=== PATIENT | male | born 1990 | race African-American/Black ===

== ENCOUNTER 2016-06-22 15:34 | Emergency (ER) | payer OTHER ==
[~2016-06-22] VITALS: Ht 177.8 cm; Wt 115.0 kg
[2016-06-22 15:39] VITALS: TEMP 37.2; Ht 177.8 cm; Wt 115.0 kg
[2016-06-22] MEDS ORDERED: XYLOCAINE 1%/SOD BICARB 20 ML VIAL INFIL ONE (16:00)
[2016-06-22] MEDS ORDERED: NAPR-1169 PO (16:15)
[2016-06-22] MEDS ORDERED: CYCL5TAB PO (16:16)
--- NOTE | 2016-06-22 16:48 | DIAGNOSTIC IMAGING REPORT ---
RIGHT HAND 3 VIEWS CLINICAL HISTORY: Right hand injury. FINDINGS: 3 views of the right hand are obtained. No prior studies are available for comparison at the time of dictation. The skeletal structures are well mineralized. No acute fracture is seen. 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 The overlying soft tissues are within normal limits. No radiodense foreign body is seen. IMPRESSION: 1. No acute bony abnormality is seen in the right hand. 2. 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 3. No radiodense foreign body is identified. Electronically signed by: Mandeep Stanford M.D. 06/22/2016 4:46 PM Dictated Date/Time: 06/22/2016 4:45 PM
--- NOTE | 2016-06-22 17:13 | EMERGENCY ROOM VISIT NOTE ---
ED Visit Note First contact with patient: 15:54 Chief Complaint: RIGHT Hand Laceration History of Present Illness: This patient is a 26-year-old male who presents to the Emergency Department this afternoon for evaluation of their RIGHT thumb laceration. Patient sustained the laceration while slipping on the ice and maxillary following with his hand through a no. They report a moderate amount of bleeding initially. They deny any numbness or tingling into the distal extremity. They report no decreased range of motion of the affected digit. They have tried nothing for the pain. Patient rates his current discomfort as a 0/10. Patient's Tetanus status is currently up-to-date. Medications: No current medications. Allergies: No known allergies. PMH: No pertinent past medical history. SHx: Patient is a 26-year-old male who lives locally. ROS: All pertinent positive and negative review of systems are appropriately documented in the History of Present Illness. Physical Exam: VITAL SIGNS - Vital signs and nursing notes were reviewed. GENERAL - 26-year-old male appearing his stated age who is in no acute distress. Communicates well with provider and answers questions appropriately. SKIN - There is a 1.0 cm long laceration noted to the MCP of the RIGHT thumb. The edges gape apart with traction. No foreign bodies appreciated. Upon further examination there are no deep structures including vessel, tendon, or bony structures appreciated. There is mild active bleeding noted. MUSCULOSKELETAL - Laceration as described above. +5/5 strength appreciated of the affected digit. Full range of motion of the affected digit. NEUROLOGIC - Spinothalamic tract was found to be intact with ability to discriminate sharp versus dull sensation. No sensory defects of the dorsal column were appreciated utilizing light touch for evaluation. VASCULAR - Capillary refill was brisk. IMAGING: RIGHT HAND 3 VIEWS CLINICAL HISTORY: Right hand injury. FINDINGS: 3 views of the right hand are obtained. No prior studies are available for comparison at the time of dictation. The skeletal structures are well mineralized. No acute fracture is seen. 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 The overlying soft tissues are within normal limits. No radiodense foreign body is seen. IMPRESSION: 1. No acute bony abnormality is seen in the right hand. 2. 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 3. No radiodense foreign body is identified. ED Course: Patient was seen and evaluated by myself. X-ray of the affected hand was obtained. Imaging results as above. Costs and benefits of performing primary wound closure versus no repair were discussed with the patient who verbalizes understanding. Verbal consent was obtained prior to performing the procedure. 1.0 cc of 1% buffered lidocaine was used to anesthetize the RIGHT hand laceration. The wound was cleansed and prepped in the typical sterile fashion utilizing normal saline and Betadine. The wound was sterilely draped. Once proper anesthetization was established, the wound was further examined and demonstrated a full-thickness laceration without extension to the deep structures.. The wound was copiously irrigated with normal saline and Betadine. The wound was closed using 3 simple, 5-0 nylon sutures with the wound edges being well approximated. Patient tolerated the procedure well. No complications were met. The wound was cleansed and dressed with a Bacitracin dressing. Patient educated on worrisome symptoms for return visit to the Emergency Department. Patient discharged to home in good condition. Impression: RIGHT Hand Laceration Discharge Instructions: You have received 3 sutures on your RIGHT Thumb. These sutures are NOT dissolvable and WILL need to be removed by a health care provider in 7-10 days. You can return to the Emergency Department or contact your Primary Care Provider to have the sutures removed. Proper wound care is essential for adequate wound healing and infection prevention. You can shower and clean the wound with soap and water. Do not scour over the wound, pat dry with a towel. Do not submerse the wound (i.e. bathe or dish wash) until the sutures have been removed. You can use an antibiotic ointment with a dressing over the wound for the next 3-4 days. After this time you may leave the wound dry and open to the air. If crust develops over the wound you can use a Q-tip to apply a 1:1 peroxide:water solution to clean the wound. Look for signs of infection of the wound including: increased pain, swelling, foul discharge, streaking, or increased temperature. If any of these are noticed you should return to the Emergency Department for further assessment and treatment. As with any laceration you may have received nerve damage to the surrounding tissues. This damage may or may not be permanent. You should keep the area covered with sunscreen for the first 6 months to 1 year when at risk for exposure to help minimize scarring. You can also use scar reducing creams or Vitamin E oil to help minimize scarring. For pain control, you can use the following jnee-iuh-eksliwa medicines (if >12 yo): - Regular strength (325mg/tab) Tylenol (acetaminophen) 2 tabs every 4-6 hours as needed. Do not exceed 12 tablets in a 24 hour period. Avoid taking more than 4 grams (4000 mg) of Tylenol per day. This includes any other sources of acetaminophen you may take on a regular basis. - Regular strength (200 mg/tab) Advil (ibuprofen) 1-2 tabs every 4-6 hours as needed. Do not exceed a dose of 3200 mg per day. Return to the emergency department if your symptoms worsen despite treatment course outlined above. Current/Historical Medications Scheduled PRN Cyclobenzaprine Hcl (Flexeril), 5 MG PO DAILY PRN for Muscle Spasms Naproxen (Naprosyn), 500 MG PO DAILY PRN for PRN Allergies Coded Allergies: No Known Allergies (Unverified , 06/22/16) Vital Signs Date Time Temp Pulse Resp B/P Pulse Ox O2 Delivery O2 Flow Rate FiO2 06/22/16 17:20 98 16 154/89 97 06/22/16 15:39 37.2 86 18 154/106 96 Room Air Departure Information Impression Primary Impression: Hand laceration Dispostion Home / Self-Care Condition GOOD Referrals Homer Sears M.D.([facility]) (PCP) Patient Instructions ED Laceration Hand, [facility] Additional Instructions You have received 3 sutures on your RIGHT Thumb. These sutures are NOT dissolvable and WILL need to be removed by a health care provider in 7-10 days. You can return to the Emergency Department or contact your Primary Care Provider to have the sutures removed. Proper wound care is essential for adequate wound healing and infection prevention. You can shower and clean the wound with soap and water. Do not scour over the wound, pat dry with a towel. Do not submerse the wound (i.e. bathe or dish wash) until the sutures have been removed. You can use an antibiotic ointment with a dressing over the wound for the next 3-4 days. After this time you may leave the wound dry and open to the air. If crust develops over the wound you can use a Q-tip to apply a 1:1 peroxide:water solution to clean the wound. Look for signs of infection of the wound including: increased pain, swelling, foul discharge, streaking, or increased temperature. If any of these are noticed you should return to the Emergency Department for further assessment and treatment. As with any laceration you may have received nerve damage to the surrounding tissues. This damage may or may not be permanent. You should keep the area covered with sunscreen for the first 6 months to 1 year when at risk for exposure to help minimize scarring. You can also use scar reducing creams or Vitamin E oil to help minimize scarring. For pain control, you can use the following alyp-ixl-nyoozwa medicines (if >12 yo): - Regular strength (325mg/tab) Tylenol (acetaminophen) 2 tabs every 4-6 hours as needed. Do not exceed 12 tablets in a 24 hour period. Avoid taking more than 4 grams (4000 mg) of Tylenol per day. This includes any other sources of acetaminophen you may take on a regular basis. - Regular strength (200 mg/tab) Advil (ibuprofen) 1-2 tabs every 4-6 hours as needed. Do not exceed a dose of 3200 mg per day. Return to the emergency department if your symptoms worsen despite treatment course outlined above. Problem Qualifiers Primary Impression: Hand laceration Encounter type: initial encounter Laterality: right Qualified Codes: S61.411A - Laceration without foreign body of right hand, initial encounter
[2016-06-22 17:20] VITALS: BP 154/89; PULSE 98; O2SAT 97
== END 2016-06-22 17:21 | disposition home or self-care (01) ==
LOC: C.EDB 15:36 → C.EDD 17:21
DX: S61.411A Laceration without foreign body of right hand, initial encounter (principal); W01.0XXA Fall on same level from slipping, tripping and stumbling without subsequent striking against object, initial encounter

== ENCOUNTER 2017-04-22 10:03 | Emergency (ER) | payer OTHER ==
[~2017-04-22] VITALS: Ht 177.8 cm; Wt 111.0 kg
[~2017-04-22 10:03] MED LIST: CYCL5TAB PO; NAPR-1169 PO
[2017-04-22 10:21] VITALS: TEMP 36.9; Ht 177.8 cm; Wt 111.0 kg
[2017-04-22] MEDS ORDERED: AZITHROMYCIN 250 MG TAB PO STA (11:02)
[2017-04-22] MEDS ORDERED: IBUPROFEN 600 MG TAB PO STA (11:02)
[2017-04-22] MEDS ORDERED: ACETAMINOPHEN 500 MG TAB PO STA (11:02)
[2017-04-22] MEDS ORDERED: BENZONATATE 100MG CAP PO ONE (11:15)
[2017-04-22 11:47] VITALS: O2SAT 98
--- NOTE | 2017-04-22 11:48 | DIAGNOSTIC IMAGING REPORT ---
CHEST ONE VIEW PORTABLE HISTORY: cough COMPARISON: None. FINDINGS: The lungs are clear. Cardiac silhouette is normal in size. No pleural effusions. No pneumothorax. IMPRESSION: No acute process. Electronically signed by: Jamie Fletcher M.D. 04/22/2017 11:47 AM Dictated Date/Time: 04/22/2017 11:46 AM
[2017-04-22] MEDS ORDERED: ERYOPO OPL (13:14)
[2017-04-22] MEDS ORDERED: PRED50TA PO (13:14)
[2017-04-22] MEDS ORDERED: AZIT250T PO (13:14)
--- NOTE | 2017-04-22 13:14 | EMERGENCY ROOM VISIT NOTE ---
History Report prepared by Oliver: Amena Feldman Under the Supervision of: Dr. Josiah Christianson M.D. First contact with patient: 10:36 Chief Complaint: DIZZY Stated Complaint: DIZZINESS AND LIGHTHEADNESS FOR 5 DAYS Nursing Triage Summary: patient c/o cough, chills, sinus congestion. x5 days. patient states today hes been feeling dizzy, lightheaded. left eye red, teary and "crusting up." states "all 3 of our kids just got over RSV... they were sick for 2 weeks. " denies fevers History of Present Illness The patient is a 26 year old male with a past medical history of a vasectomy and foot surgery who presents to the ED with a cc of worsening dizziness beginning this morning. The patient states that he feels like the room is spinning and when he lays on his left side it is better. He states it is worse when standing up. Positive lightheadedness, productive cough, congestion, yellow discharge from his eye, redness in his eye, and headache. Negative urinary symptoms and abnormal bowel movements. The patient denies taking Benadryl and Claritin. He denies getting a flu shot. Source of History: patient Onset: this morning Position: other (global) Quality: other (room is spinning) Timing: worsening Modifying Factors (Worsening): other (standing) Modifying Factors (Relieving): other (lying on left side) Associated Symptoms: + headache, + cough, No urinary symptoms Note: The patient complains of lightheadedness, congestion, yellow discharge from his eye, and redness in his eye. The patient denies abnormal bowel movements. Review of Systems See HPI for pertinent positives and negatives. A total of ten systems were reviewed and were otherwise negative. Past Medical & Surgical Surgical Problems: (1) H/O vasectomy (2) Hx of foot surgery Family History Diabetes mellitus Social History Smoking Status: Never Smoker Alcohol Use: none Marital Status: Housing Status: lives with family Occupation Status: employed Current/Historical Medications Scheduled Azithromycin (Zithromax), 250 MG PO DAILY Erythromycin Opth (Erythromycin Opth), 1 INCH OPL QID Prednisone (Prednisone), 50 MG PO DAILY Allergies Coded Allergies: No Known Allergies (Unverified , 04/22/17) Physical Exam Vital Signs Date Time Temp Pulse Resp B/P (MAP) Pulse Ox O2 Delivery O2 Flow Rate FiO2 1/14/18 13:35 75 20 166/98 96 04/22/17 12:33 72 25 174/99 96 04/22/17 12:23 79 04/22/17 11:47 98 Room Air 04/22/17 11:42 04/22/17 10:21 36.9 85 18 145/88 97 Room Air Physical Exam GENERAL: Awake, alert, well-appearing, NAD HENT: Normocephalic, atraumatic. Posterior pharynx clear. No tonsillar or uvular deviation. Left TM is normal. Right TM has scant redness, but no bulging and no effusion. EYES: EOMI. No proptosis. No painful JOHNY. No hyphema. No hypopyon. Mild conjunctival injection of the left eye. Sclera non-icteric. NECK: Supple. No nuchal rigidity. FROM. No stridor. RESPIRATORY: CTAB, no rhonchi, wheezing, crackles CARDIAC: RRR, no MRG ABDOMEN: Soft, NTND, BS+ MSK: No chest wall TTP, no LE edema NEURO: GCS 15, CN 2-12 intact, moves all 4s on command SKIN: No rash or jaundice noted. Medical Decision & Procedures ER Provider Diagnostic Interpretation: Radiology results as stated below per my review and radiologist interpretation: CHEST ONE VIEW PORTABLE HISTORY: cough COMPARISON: None. FINDINGS: The lungs are clear. Cardiac silhouette is normal in size. No pleural effusions. No pneumothorax. IMPRESSION: No acute process. Electronically signed by: Jamie Fletcher M.D. 04/22/2017 11:47 AM Dictated Date/Time: 04/22/2017 11:46 AM Medications Administered Medications (Trade) Dose Ordered Sig/Stephanie Route Start Time Stop Time Status Last Admin Dose Admin Acetaminophen (Tylenol Tab) 1,000 mg NOW STAT PO 04/22/17 11:02 04/22/17 11:04 DC 04/22/17 11:35 1,000 MG Azithromycin (Zithromax Tab) 500 mg NOW STAT PO 04/22/17 11:02 04/22/17 11:04 DC 04/22/17 11:35 500 MG Prednisone (PredniSONE TAB) 60 mg NOW STAT PO 04/22/17 11:02 04/22/17 11:04 DC 04/22/17 11:34 60 MG Benzonatate (Tessalon Perles Cap) 100 mg NOW ONCE PO 04/22/17 11:15 04/22/17 11:16 DC 04/22/17 11:35 100 MG Ibuprofen (Motrin Tab) 600 mg NOW STAT PO 04/22/17 11:02 04/22/17 11:04 DC 04/22/17 11:34 600 MG ECG Indication: other (dizziness) Rate (beats per minute): 75 Rhythm: normal sinus Findings: T-wave inversion (V3 and avF), other (normal intervals, normal axis, biphasic t waves in the lateral leads) ED Course 1053: The patient was evaluated in room C8. A complete history and physical exam was performed. 1230: I reevaluated the patient. Discussed results and discharge instructions: he verbalized understanding and agreement. The patient is ready for discharge. Medical Decision The patient is a 26 year old male with a past medical history of a vasectomy and foot surgery who presents to the ED with a cc of worsening dizziness beginning this morning. Etiologies such as viral syndrome, tonsillitis, streptococcal pharyngitis, mononucleosis, peritonsillar abscess, retropharyngeal abscess, otitis, pneumonia , influenza, as well as others were entertained. Patient was seen and evaluated the bedside. Patient had complained of some persistent dizziness. Patient did describe it is somewhat spinning. Patient states is worse when he turns onto his left side. Patient's bilateral TMs appear clear. Patient has had an issue with some mild cough. Patient has a nonfocal neurologic exam and I don't believe this is central in etiology given the patient's young age with out any risk factors. Patient did have an EKG and chest x-ray completed given his persistent cough. Patient's chest x-ray was unremarkable. Patient's EKG did show some changes that were not normal. Patient denied any chest pain or shortness of breath and do not believe this needs to be further evaluated but the patient was told that he should follow-up with his PCP given his EKG changes. Given the patient's chronicity of symptoms the patient was given antibiotics. Patient was also given a short course of steroids. I believe that based on the patient's history and physical exam is most likely related to her infectious etiology and likely chronic bronchitis. Patient also did have some mild conjunctivitis of the left eye. Patient was given a prescription for erythromycin ophthalmic ointment. Patient was told to continue hand hygiene as he does have young children at home. Patient was deemed suitable for outpatient follow-up and treatment at this time.Patient was given strict follow-up, discharge, and return precautions. All questions were answered. Patient was deemed suitable for outpatient follow-up at this time. Patient agreed with the plan of care and was safely discharged home. Medication Reconcilliation Current Medication List: was personally reviewed by me Blood Pressure Screening Patient's blood pressure: Elevated blood pressure Blood pressure disposition: Referred to PCP Impression Primary Impression: URI (upper respiratory infection) Additional Impressions: Bronchitis Eustachian tube dysfunction Vertigo Scribe Attestation The scribe's documentation has been prepared under my direction and personally reviewed by me in its entirety. I confirm that the note above accurately reflects all work, treatment, procedures, and medical decision making performed by me. Departure Information Dispostion Home / Self-Care Prescriptions Erythromycin Opth (ERYTHROMYCIN OPTH) 12 Appln/3.5 Gm Oint 1 INCH OPL QID for 5 Days, #1 TUBE Prov: Josiah Christianson M.D. 04/22/17 Prednisone (PREDNISONE) 50 Mg Tab 50 MG PO DAILY for 4 Days, #4 TAB Prov: Josiah Christianson M.D. 04/22/17 Azithromycin (Zithromax) 250 Mg Tab 250 MG PO DAILY for 4 Days, #4 TAB Prov: Josiah Christianson M.D. 04/22/17 Referrals Homer Sears M.D. ([facility]) (PCP) Forms HOME CARE DOCUMENTATION FORM, IMPORTANT VISIT INFORMATION Patient Instructions Bronchitis Chronic, Dizziness Vertigo Inner Ear, My [facility] Additional Instructions Please return to the emergency department if you have worsening or recurrent symptoms not amenable to at-home treatment. Please call for a follow-up appointment with her primary care physician. Please take your medications as prescribed. If you have other concerns and/or complaints please feel free to also call your primary care physician's office or return the ED for further evaluation, management, and treatment. You may take 600 mg Ibuprofen every 6 hours as needed for pain with food for no more than 2 consecutive days. You may take tylenol 1000 mg every 6 hours as needed for pain. You may take motrin and tylenol separately or at the same time. Take your medications as prescribed. If taking an antibiotic consider taking a probiotic and/or eating yogurt, but at the least, please take with food as it can cause upset stomach. As we discussed you did have some EKG changes. These follow-up with her PCP for further evaluation. You have been examined and treated today on an emergency basis only. This is not a substitute for, or an effort to provide, complete comprehensive medical care. It is impossible to recognize and treat all injuries or illnesses in a single emergency department visit. It is therefore important that you follow up closely with [facility], your PCP, and/or your specialist(s). Call as soon as possible for an appointment. Thank you for your time and consideration. I look forward to speaking with you again soon. Please don't hesitate to call us if you have any questions. Problem Qualifiers Primary Impression: URI (upper respiratory infection) URI type: unspecified URI Qualified Codes: J06.9 - Acute upper respiratory infection, unspecified Additional Impressions: Eustachian tube dysfunction Laterality: left Qualified Codes: H69.82 - Other specified disorders of eustachian tube, left ear
[2017-04-22 13:35] VITALS: BP 166/98; PULSE 75; O2SAT 96
== END 2017-04-22 13:38 | disposition home or self-care (01) ==
LOC: C.EDB 10:05 → C.EDC 13:38
DX: J06.9 Acute upper respiratory infection, unspecified (principal); H69.82 Other specified disorders of Eustachian tube, left ear; J40 Bronchitis, not specified as acute or chronic; R42 Dizziness and giddiness; Z98.52 Vasectomy status; Z98.890 Other specified postprocedural states; Z83.3 Family history of diabetes mellitus